=== PATIENT | male | born 1950 | race African-American/Black ===

== ENCOUNTER 2021-03-15 13:12 | Emergency (ER) | payer MEDICARE, BC ==
[~2021-03-15] VITALS: Ht 172.7 cm; Wt 67.6 kg
[2021-03-15 13:20] VITALS: BP 119/72
--- NOTE | 2021-03-15 14:24 | NUR ---
Patient discharged to home in stable condition. Written and verbal after care instructions given. Patient verbalizes understanding of instruction.
== END 2021-03-15 14:37 | disposition home or self-care (01) ==
LOC: ER 13:12
DX: S62.001A Unspecified fracture of navicular [scaphoid] bone of right wrist, initial encounter for closed fracture (principal); E78.00 Pure hypercholesterolemia, unspecified; F17.200 Nicotine dependence, unspecified, uncomplicated; Z60.2 Problems related to living alone; W18.39XA Other fall on same level, initial encounter; Y93.89 Activity, other specified; Y92.89 Other specified places as the place of occurrence of the external cause; Y99.8 Other external cause status
CPT/HCPCS: 73110

== ENCOUNTER 2024-10-08 05:46 | Emergency (ER) | payer MEDICARE, BC ==
[~2024-10-08] VITALS: Ht 172.7 cm; Wt 64.9 kg
[2024-10-08 06:05] VITALS: BP 144/79; TEMP 98.6; O2SAT 98
[2024-10-08] MEDS ORDERED: DOCU-141 PO (06:36)
[2024-10-08] MEDS ORDERED: GLYC-30 RC (06:36)
[2024-10-08] MEDS ORDERED: LACTULOSE 10 G/15 ML UDC (PYXIS) ONE (06:46)
[2024-10-08] MEDS: LACTULOSE 10 G/15 ML UDC (PYXIS) PO ONE (06:51)
== END 2024-10-08 06:54 | disposition home or self-care (01) ==
LOC: ER 05:50
DX: K59.00 Constipation, unspecified (principal); E78.00 Pure hypercholesterolemia, unspecified; F17.200 Nicotine dependence, unspecified, uncomplicated; Z87.442 Personal history of urinary calculi; Z60.2 Problems related to living alone